=== PATIENT | male | born 1975 | race African-American/Black ===

== ENCOUNTER 2023-03-16 16:19 | Emergency (ER) | payer OTHER ==
[2023-03-16 16:35] VITALS: BP 172/110; PULSE 104; RESP 18; TEMP 98.3; BMI 31.7
[2023-03-16] MEDS ORDERED: RABIES VACCINE (PCEC)/PF 2.5 UNIT/VIAL IM ONE ×2 (18:09→18:41)
[2023-03-16] MEDS ORDERED: RABIES IMMUNE GLOBULIN 300 UNITS/1 ML VIAL IM ONE (18:09)
[2023-03-16] MEDS ORDERED: AMOX TR/POT CLAV 875MG/125MG TABLETS (FP) PO ONE (18:10)
[2023-03-16] MEDS ORDERED: AMOX TR/POT CLAV 875MG/125MG TABLETS (FP) ONE (18:56)
== END 2023-03-16 19:17 | disposition home or self-care (01) ==
LOC: JERFT 16:19 → JER 16:19 → JERFT 19:17
PROC: 3E0234Z Introduction of Serum, Toxoid and Vaccine into Muscle, Percutaneous Approach (ICD-10-PCS; principal; 2023-03-16)
PROC: 3E0234Z Introduction of Serum, Toxoid and Vaccine into Muscle, Percutaneous Approach (ICD-10-PCS; 2023-03-16)
DX: S71.151A Open bite, right thigh, initial encounter (principal); W54.0XXA Bitten by dog, initial encounter
CPT/HCPCS: 90375; 90675; 99283-25

== ENCOUNTER 2023-03-18 15:56 | Emergency (ER) | payer OTHER ==
[2023-03-18 16:20] VITALS: BP 152/105; PULSE 89; RESP 16; TEMP 98.2; BMI 32.5
== END 2023-03-18 16:48 | disposition left against medical advice (07) ==
LOC: JERFT 15:56
DX: Z23 Encounter for immunization (principal)
CPT/HCPCS: 99281-25

== ENCOUNTER 2023-03-20 11:51 | Emergency (ER) | payer OTHER ==
[2023-03-20 12:01] VITALS: BP 141/90; PULSE 69; RESP 18; TEMP 97.9; BMI 32.0
[2023-03-20] MEDS ORDERED: RABIES VACCINE (PCEC)/PF 2.5 UNIT/VIAL IM ONE ×2 (12:17→12:24)
== END 2023-03-20 12:45 | disposition home or self-care (01) ==
LOC: JERFT 11:51
PROC: 3E0234Z Introduction of Serum, Toxoid and Vaccine into Muscle, Percutaneous Approach (ICD-10-PCS; principal; 2023-03-20)
PROC: 3E0234Z Introduction of Serum, Toxoid and Vaccine into Muscle, Percutaneous Approach (ICD-10-PCS; 2023-03-20)
DX: Z00.8 Encounter for other general examination (principal); Z29.14 Encounter for prophylactic rabies immune globulin
CPT/HCPCS: 90675; 99281-25

== ENCOUNTER 2023-03-24 16:04 | Emergency (ER) | payer OTHER ==
[2023-03-24 16:32] VITALS: BP 158/107; PULSE 68; RESP 18; TEMP 98; BMI 33.2
== END 2023-03-24 18:49 | disposition left against medical advice (07) ==
LOC: JERFT 16:04 → JER 16:04 → JERFT 18:49
DX: Z00.8 Encounter for other general examination (principal); Z29.14 Encounter for prophylactic rabies immune globulin
CPT/HCPCS: 99281-25

== ENCOUNTER 2023-03-25 14:42 | Emergency (ER) | payer OTHER ==
[2023-03-25 14:54] VITALS: BP 139/90; PULSE 97; RESP 20; TEMP 98.2; BMI 32.9
[2023-03-25] MEDS ORDERED: RABIES VACCINE (PCEC)/PF 2.5 UNIT/VIAL IM ONE ×2 (15:35→15:44)
== END 2023-03-25 15:48 | disposition home or self-care (01) ==
LOC: JERFT 14:42
PROC: 3E0234Z Introduction of Serum, Toxoid and Vaccine into Muscle, Percutaneous Approach (ICD-10-PCS; principal; 2023-03-25)
PROC: 3E0234Z Introduction of Serum, Toxoid and Vaccine into Muscle, Percutaneous Approach (ICD-10-PCS; 2023-03-25)
DX: Z00.8 Encounter for other general examination (principal); Z29.14 Encounter for prophylactic rabies immune globulin
CPT/HCPCS: 90675; 99281-25

== ENCOUNTER 2023-04-09 10:17 | Emergency (ER) | payer OTHER ==
[2023-04-09 10:30] VITALS: TEMP 98; BMI 31.0
[2023-04-09] MEDS ORDERED: RABIES VACCINE (PCEC)/PF 2.5 UNIT/VIAL IM ONE ×2 (10:46→10:49)
[2023-04-09 11:04] VITALS: BP 145/106; PULSE 101; RESP 16
== END 2023-04-09 11:23 | disposition home or self-care (01) ==
LOC: JERFT 10:17
PROC: 3E0234Z Introduction of Serum, Toxoid and Vaccine into Muscle, Percutaneous Approach (ICD-10-PCS; principal; 2023-04-09)
DX: S71.151D Open bite, right thigh, subsequent encounter (principal); Z20.3 Contact with and (suspected) exposure to rabies; W54.0XXD Bitten by dog, subsequent encounter
CPT/HCPCS: 90675; 99282-25

== ENCOUNTER 2023-08-20 10:37 | Inpatient (IN) | payer OTHER ==
[2023-08-20 11:16] VITALS: BMI 29.5
[2023-08-20] MEDS ORDERED: NALOXONE HCL (KLOXXADO) 8 MG SPRAY NS PRN (11:51)
[2023-08-20] MEDS ORDERED: MAGNESIUM HYDROX 2400MG/30ML ORAL SUSPENSION 30 ML CUP PO PRN (11:51)
[2023-08-20] MEDS ORDERED: BENZONATATE 200 MG CAPSULE PO PRN (11:51)
[2023-08-20] MEDS ORDERED: LOPERAMIDE HCL 2 MG CAPSULE PO PRN (11:51)
[2023-08-20] MEDS ORDERED: MAG HYDROX/AL HYDROX/SIMETH 30 ML UNIT-DOSE CUP PO PRN (11:51)
[2023-08-20] MEDS ORDERED: POLYETHYLENE GLYCOL (HEALTHYLAX) 3350 17 GM PACKET PO PRN (11:51)
[2023-08-20] MEDS ORDERED: NICOTINE POLACRILEX 2 MG GUM BUC PRN (11:51)
[2023-08-20] MEDS ORDERED: guaiFENesin 600 MG TABLET.ER (FP) PO PRN (11:51)
[2023-08-20] MEDS ORDERED: IBUPROFEN 400 MG TABLET (FP) PO PRN (11:51)
[2023-08-20] MEDS ORDERED: NALOXONE HCL 0.4 MG/ML VIAL IM PRN (11:51)
[2023-08-20] MEDS ORDERED: BENZOCAINE/MENTHOL (CHLORASEPTIC ) LOZENGE MM PRN (11:51)
[2023-08-20] MEDS: PRENATAL VITAMINS W/ FOLIC ACID TABLET (FP) PO SCH (12:18)
[2023-08-20] MEDS: THIAMINE HCL 100 MG TABLET (FP) PO SCH (21:22)
[2023-08-20] MEDS: MELATONIN 5 MG TABLETS PO SCH (21:22)
[2023-08-21 11:26] LABS: HEMATOCRIT 40.1 % (35.4-49); HEMOGLOBIN 13.3 GM/dL (11.7-16.9); MCH 26.8 pg (25.7-33.7); MCHC 33.2 g/dl (32.0-35.9); MEAN CELL VOLUME 80.7 fl (80-96); MEAN PLT VOLUME 10.1 fl (7.5-11.1); PLATELET COUNT 228 10^3/uL (134-434); RBC 4.97 M/mm3 (4.00-5.60); RDW 13.5 % (11.9-15.9); WHITE BLOOD COUNT 6.6 K/mm3 (4.0-10.0)
[2023-08-21 12:07] LABS: CREATININE 1.1 mg/dL (0.55-1.3)
[2023-08-21 12:09] LABS: ALBUMIN 3.2 g/dl (3.4-5.0); BILIRUBIN,TOTAL 0.5 mg/dL (0.2-1); BLOOD UREA NITROGEN 11.7 mg/dL (7-18); CALCIUM 9.6 mg/dL (8.5-10.1); TOT PROT 6.5 g/dl (6.4-8.2)
[2023-08-21 12:27] LABS: SYPHILIS W/ RPR CONF NON-REACTIVE (NONREACTIVE)
[2023-08-21 15:38] LABS: URINE APPEARANCE CLEAR; URINE BILIRUBIN NEGATIVE (NEGATIVE); URINE COLOR YELLOW; URINE GLUCOSE (UA) 3+ (NEGATIVE); URINE KETONE NEGATIVE (NEGATIVE); URINE LEUK ESTERASE NEGATIVE (NEGATIVE); URINE NITRITE NEGATIVE (NEGATIVE); URINE PROTEIN NEGATIVE (NEGATIVE); URINE UROBILINOGEN 0.2 mg/dL (0.2-1.0)
[2023-08-24] MEDS: metFORMIN HCL 500 MG TABLET (FP) PO SCH (06:38)
[2023-08-24] MEDS: INSULIN ASPART SLIDING SCALE (NOVOLOG) 1 VIAL SQ SCH (07:29)
[2023-08-24] MEDS: IBUPROFEN 600 MG TABLET (FP) PO PRN (21:11)
[2023-08-25] MEDS: hydrOXYzine PAMOATE 25 MG CAPSULE (FP) PO PRN (21:23)
[2023-08-26 07:29] VITALS: RESP 18
[2023-08-26] MEDS: metFORMIN HCL 500 MG TABLET (FP) PO ONE (19:40)
[2023-08-27] MEDS: metFORMIN HCL 500 MG TABLET (FP) PO SCH (06:13)
[2023-08-31] MEDS: metFORMIN HCL 500 MG TABLET (FP) PO ONE (17:33)
[2023-09-01] MEDS: metFORMIN HCL 500 MG TABLET (FP) PO SCH (06:46)
[2023-09-01] MEDS: ACETAMINOPHEN 325 MG TABLET (FP) PO PRN (10:21)
[2023-09-03 07:33] VITALS: BP 130/76; PULSE 83; TEMP 97.6
== END 2023-09-03 10:25 | disposition home or self-care (01) | DRG 772 ==
LOC: YASAS 10:37 → Y5N 16:22
PROVIDERS: ADMIT Allergy & Immunology; ATTEND Psychiatry & Neurology Pain Medicine
PROC: HZ42ZZZ Group Counseling for Substance Abuse Treatment, Cognitive-Behavioral (ICD-10-PCS; principal; 2023-08-20)
DX: F10.10 Alcohol abuse, uncomplicated (principal); F16.20 Hallucinogen dependence, uncomplicated; F17.210 Nicotine dependence, cigarettes, uncomplicated; E11.9 Type 2 diabetes mellitus without complications; Z79.84 Long term (current) use of oral hypoglycemic drugs
CPT/HCPCS: 36415; 71046-TC-FY; 80053; 80305; 81003; 82962; 83036; 85027; 86780; 86803; 87635; 87811; 93005; 93010

== ENCOUNTER 2024-04-06 11:15 | Emergency (ER) | payer OTHER ==
[2024-04-06 11:20] VITALS: BP 125/84; PULSE 94; RESP 20; TEMP 97.6; BMI 28.9
[2024-04-06] MEDS ORDERED: DOXYCYCLINE HYCLATE 100 MG CAPSULE PO ONE (12:42)
[2024-04-06] MEDS ORDERED: cefTRIAXone SODIUM 1 GM VIAL ONE (12:43)
[2024-04-06] MEDS ORDERED: LIDOCAINE HCL 1%, 10 MG/ML (20ML VIAL) ONE (12:45)
[2024-04-06] MEDS: DOXYCYCLINE HYCLATE 100 MG CAPSULE PO ONE (12:54)
== END 2024-04-06 13:13 | disposition home or self-care (01) ==
LOC: JERFT 11:15
DX: Z11.3 Encounter for screening for infections with a predominantly sexual mode of transmission (principal); N48.89 Other specified disorders of penis
CPT/HCPCS: 36415; 87491; 87591; 87661; 99284-25

== ENCOUNTER 2024-04-13 14:47 | Emergency (ER) | payer OTHER ==
[2024-04-13 15:24] VITALS: BP 129/85; PULSE 97; RESP 20; TEMP 98.8; BMI 29.2
[2024-04-13 16:34] LABS: PH,URINE 5.5 (5.0-8.0); URINE APPEARANCE CLEAR; URINE BILIRUBIN NEGATIVE (NEGATIVE); URINE COLOR YELLOW; URINE GLUCOSE (UA) >=1000 (NEGATIVE); URINE KETONE TRACE (NEGATIVE); URINE LEUK ESTERASE NEGATIVE (NEGATIVE); URINE NITRITE NEGATIVE (NEGATIVE); URINE PROTEIN NEGATIVE (NEGATIVE); URINE UROBILINOGEN 0.2 mg/dL (0.2-1.0)
== END 2024-04-13 17:10 | disposition left against medical advice (07) ==
LOC: JERFT 14:47
DX: N48.1 Balanitis (principal); R30.0 Dysuria
CPT/HCPCS: 81003; 87077; 87086; 99283-25

== ENCOUNTER 2024-05-08 04:38 | Emergency (ER) | payer OTHER ==
[2024-05-08] MEDS ORDERED: IBUPROFEN 600 MG TABLET (FP) PO ONE (04:54)
[2024-05-08 05:06] VITALS: BP 158/97; PULSE 109; RESP 18; TEMP 98; BMI 28.6
== END 2024-05-08 05:16 | disposition left against medical advice (07) ==
LOC: JER 04:38
DX: R07.9 Chest pain, unspecified (principal)
CPT/HCPCS: 99281-25

== ENCOUNTER 2024-12-11 15:10 | Emergency (ER) | payer OTHER ==
[2024-12-11 15:38] VITALS: TEMP 98.6; BMI 28.0
[2024-12-11] MEDS ORDERED: THIAMINE HCL 200 MG/2 ML VIAL ONE (17:22)
[2024-12-11] MEDS ORDERED: CEFTRIAXONE 1 GM/50 ML BAG ONE (17:22)
[2024-12-11 17:25] LABS: VENOUS BASE EXCESS -2.8 mmol/L (-2-2); VENOUS PCO2 50.4 mmHg (38-52); VENOUS PH 7.301 (7.310-7.410)
[2024-12-11] MEDS: CEFTRIAXONE 1,000 MG in DEXTROSE 5%-WATER - 50 ML IVPB ONE (17:30)
[2024-12-11 17:34] LABS: HEMATOCRIT 48.2 % (40.1-51.0); MCHC 33.2 g/dl (32.3-36.5); MEAN CELL VOLUME 80.2 fl (79.0-92.2); MEAN PLT VOLUME 12.2 fl (9.4-12.4); PLATELET COUNT 271 x10^3/uL (163-337); RDW 12.9 % (12.1-15.9)
[2024-12-11 17:36] LABS: PH,URINE 5.5 (5.0-8.0); URINE APPEARANCE CLEAR; URINE BILIRUBIN NEGATIVE (NEGATIVE); URINE COLOR YELLOW; URINE GLUCOSE (UA) 3+ (NEGATIVE); URINE KETONE NEGATIVE (NEGATIVE); URINE LEUK ESTERASE NEGATIVE (NEGATIVE); URINE NITRITE NEGATIVE (NEGATIVE); URINE PROTEIN NEGATIVE (NEGATIVE); URINE UROBILINOGEN 0.2 mg/dL (0.2-1.0)
[2024-12-11] MEDS: SODIUM CHLORIDE 0.9% 500 ML INFUS.BAG IV ONE ×2 (17:53→19:06)
[2024-12-11] MEDS: THIAMINE HCL 200 MG/2 ML VIAL IVPB ONE (17:53)
[2024-12-11 17:55] LABS: POTASSIUM 5.5 mmol/L (3.5-5.1)
[2024-12-11 17:57] LABS: CALCIUM 10.2 mg/dL (8.5-10.1)
[2024-12-11 17:58] LABS: BLOOD UREA NITROGEN 20.3 mg/dL (7-18)
[2024-12-11 18:01] LABS: CREATININE 1.5 mg/dL (0.55-1.3)
[2024-12-11 18:03] LABS: BILIRUBIN,TOTAL 0.9 mg/dL (0.2-1); TOT PROT 8.7 g/dl (6.4-8.2)
[2024-12-11] MEDS ORDERED: ACETAMINOPHEN INJECTION 100 ML ONE (18:03)
[2024-12-11] MEDS: ACETAMINOPHEN 1000 MG/100 ML BAG IVPB ONE (18:18)
[2024-12-11 19:52] VITALS: BP 149/98; PULSE 92; RESP 20
== END 2024-12-11 20:05 | disposition home or self-care (01) ==
LOC: JER 15:10
PROC: 3E03329 Introduction of Other Anti-infective into Peripheral Vein, Percutaneous Approach (ICD-10-PCS; principal; 2024-12-11)
PROC: 3E033NZ Introduction of Analgesics, Hypnotics, Sedatives into Peripheral Vein, Percutaneous Approach (ICD-10-PCS; 2024-12-11)
DX: L53.9 Erythematous condition, unspecified (principal); N48.89 Other specified disorders of penis
CPT/HCPCS: 36415; 80053; 81003; 82010; 82803; 83605; 85027; 87086; 87491; 87591; 87661; 93005; 93010; 99284-25